=== PATIENT | female | born 1975 | race American Indian/Alaskan Native ===

== ENCOUNTER 2017-09-07 10:01 | Emergency (ER) | payer OTHER ==
[2017-09-07 10:01] VITALS: BMI 21.4
[2017-09-07 10:47] VITALS: TEMP 99; O2SAT 99
--- NOTE | 2017-09-07 11:14 | ED PDOC ---
Arrival/HPI - General Chief Complaint: Groin Pain Time Seen by Provider: 09/07/17 11:11 Historian: Patient - History of Present Illness Narrative History of Present Illness (Text): 09/07/17 11:11 This 41 yo female presents to this ED c/o right pubis abscess x 2 days. Patient stated she has had similar skin infection in the past from shaving. Patient stated she has been applying warmth compress. Patient does not want to havd I&D done today. She wants ABX, and pain medication. Denies other complains. Time/Duration: Other (see hpi) Context: Home Past Medical History - Provider Review Nursing Documentation Reviewed: Yes - Infectious Disease Hx of Infectious Diseases: None - Cardiac Hx Cardiac Disorders: No - Pulmonary Hx Respiratory Disorders: No - Neurological Hx Neurological Disorder: No - HEENT Hx HEENT Disorder: No - Renal Hx Renal Disorder: No - Endocrine/Metabolic Hx Endocrine Disorders: No - Hematological/Oncological Hx Blood Disorders: No - Integumentary Hx Dermatological Disorder: Yes Other/Comment: wound to right groin area, abcess, i&d on 11/26/2015 and packed for healing - Musculoskeletal/Rheumatological Hx Musculoskeletal Disorders: No - Gastrointestinal Hx Gastrointestinal Disorders: No - Genitourinary/Gynecological Hx Genitourinary Disorders: No - Psychiatric Hx Psychophysiologic Disorder: No Hx Anxiety: No Hx Bipolar Disorder: No Hx Depression: No Hx Emotional Abuse: No Hx Hallucinations: No Hx Panic Disorder: No Hx Post Traumatic Stress Disorder: No Hx Psychosis: No Hx Physical Abuse: No Hx Schizophrenia: No Hx Sexual Abuse: No Hx Substance Use: No - Surgical History Hx Orthopedic Surgery: Yes - Anesthesia Hx Anesthesia: No Hx Anesthesia Reactions: No Hx Malignant Hyperthermia: No Family/Social History - Physician Review Nursing Documentation Reviewed: Yes Family/Social History: Other (noncontributory) Smoking Status: Never Smoked Hx Alcohol Use: No Hx Substance Use: No Allergies/Home Meds Allergies/Adverse Reactions: Allergies No Known Allergies Allergy (Verified 11/29/15 01:29) Review of Systems - Review of Systems Constitutional: Normal. absent: Fatigue, Weight Change, Fevers Eyes: Normal ENT: Normal Respiratory: Normal Cardiovascular: Normal Gastrointestinal: Normal Genitourinary Female: Normal Musculoskeletal: Normal Skin: Abscess. absent: Rash, Pruritis, Cellulitis Neurological: Normal Endocrine: Normal Hemo/Lymphatic: Normal Psychiatric: Normal Physical Exam Vital Signs Temp Pulse Resp BP Pulse Ox 09/07/17 10:46 99 F 76 16 105/68 99 Temperature: Afebrile Blood Pressure: Normal Pulse: Regular Respiratory Rate: Normal Appearance: Positive for: Well-Appearing, Non-Toxic, Comfortable Pain Distress: None Mental Status: Positive for: Alert and Oriented X 3 - Systems Exam Head: Present: Atraumatic, Normocephalic Pupils: Present: PERRL Extroacular Muscles: Present: EOMI Conjunctiva: Present: Normal Mouth: Present: Moist Mucous Membranes Neck: Present: Normal Range of Motion Genitourinary/Pelvic Exam: Present: Normal External Genitalia, Other ((+) right side pubic indurated abscess. No drainage or surround erythema. 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 No: Vaginal Discharge, Vaginal Bleeding, Vaginal Lesions, Odor Upper Extremity: Present: Normal Inspection, Neurovascularly Intact Lower Extremity: Present: Normal Inspection, Normal ROM Neurological: Present: GCS=15, CN II-XII Intact, Speech Normal, Motor Func Grossly Intact, Normal Sensory Function, Normal Cerebellar Funct, Gait Normal Skin: Present: Warm, Dry, Normal Color, Induration (right pubic ) Psychiatric: Present: Alert, Normal Concentration Medical Decision Making ED Course and Treatment: 09/07/17 11:19 Re-evaluation. Patient feels better. Discussed results and plan with patient who expresses understanding. All questions answered and there is agreement with the plan to discharge home with instructions. Patient stable for discharge. Return if symptoms persist or worsen. Patient refused to have I&D. She prefers to do warmth compress for now and ABX. I recommended patient to see her doctor in 1-2 days or to return to ED if unable to see doctor or worsening of pain. Re-evaluation Time: 11:19 Reassessment Condition: Re-examined, Improved Disposition/Present on Arrival - Present on Arrival Any Indicators Present on Arrival: No History of DVT/PE: No History of Uncontrolled Diabetes: No Urinary Catheter: No History of Decub. Ulcer: No History Surgical Site Infection Following: None - Disposition Have Diagnosis and Disposition been Completed?: Yes Diagnosis: Abscess Disposition: HOME/ ROUTINE Disposition Time: 11:20 Patient Plan: Discharge Patient Problems: Current Active Problems Problem Status Onset Abscess Acute Condition: GOOD Discharge Instructions (ExitCare): Boil Additional Instructions: Call private doctor for follow up visit in 1-2 days. Take medication as instructed. Apply warmth compress over the affected area every hour for about ten minutes. Take medication as instructed. return to emergency if pain worsen. Prescriptions: Famotidine [Pepcid] 40 mg PO DAILY #10 tablet Ibuprofen [Motrin] 600 mg PO Q8 PRN #20 tab PRN Reason: Pain, Severe (8-10) Sulfamethoxazole/Trimethoprim [Bactrim DS 800 mg-160 mg] 1 tab PO BID #20 tab Referrals: PCP,NO [Primary Care Provider] - Follow up with primary [facility] [Outside] - Follow up with primary [facility] [Outside] - Follow up with primary Forms: [employer] ([place]), SCHOOL NOTE
[2017-09-07 11:24] VITALS: BP 107/69; PULSE 71; RESP 18
[2017-09-07] MEDS ORDERED: Tmp-Smz 800 mg-160 mg DS Tab PO STA (11:24)
== END 2017-09-07 11:50 | disposition home or self-care (01) ==
LOC: ED 10:01
DX: L02.214 Cutaneous abscess of groin (principal)